=== PATIENT | female | born 1980 | race African-American/Black ===

== ENCOUNTER 2016-09-29 23:24 | Emergency (ER) | payer MEDICAID, OTHER ==
[~2016-09-29] VITALS: Ht 157.5 cm; Wt 99.8 kg
[2016-09-29] MEDS ORDERED: eye drops OU (23:37)
[2016-09-29] MEDS ORDERED: FLON1SPR (23:37)
[2016-09-29] MEDS ORDERED: ZYRT10TA2 PO (23:37)
[2016-09-29] MEDS ORDERED: BENA25CA4 PO (23:46)
[2016-09-30] MEDS ORDERED: methylPREDNISolone INJ 125 MG/2 ML VIAL (J2930) IV ONE
[2016-09-30 01:34] LABS: BASO % 0.4 % (0.0-1.0); EOS # 0.6 K/mm3 (0.0-0.50); EOS % 6.4 % (0.0-3.0); LARGE UNSTAINED CELL # 0.2 K/mm3 (0.0-0.4); LARGE UNSTAINED CELL % 2.3 % (0.0-4.0); LYMPH # 2.7 K/mm3 (1.5-4.5); LYMPH % 28.3 % (24.0-44.0); MEAN CORPUSCULAR HEMOGLOBIN 23.5 pg (27.0-33.0); MEAN CORPUSCULAR HGB CONC 31.7 g/dl (32.0-36.5); MEAN CORPUSCULAR VOLUME 74.2 fl (80.0-96.0); MONO # 0.4 K/mm3 (0.0-0.8); MONO % 4.9 % (0.0-5.0); NEUTROPHILS # 5.2 K/mm3 (1.8-7.7); NEUTROPHILS % 57.7 % (36.0-66.0); PLATELET COUNT, AUTOMATED 267 k/mm3 (150-450); RED CELL DISTRIBUTION WIDTH 17.7 % (11.5-14.5)
[2016-09-30 02:03] LABS: CONTROL LINE HCG INT CTR LINE PRESENT
[2016-09-30 02:08] LABS: ANION GAP 8 MEQ/L (8-16); BLOOD UREA NITROGEN 9 MG/DL (7-18); CALCIUM LEVEL 8.7 MG/DL (8.5-10.1); CARBON DIOXIDE LEVEL 25 MEQ/L (21-32); CHLORIDE LEVEL 107 MEQ/L (98-107); CREATININE FOR GFR 0.85 MG/DL (0.55-1.02); GLOMERULAR FILTRATION RATE > 60.0 (>60); GLUCOSE, FASTING 101 MG/DL (70-105); POTASSIUM SERUM 3.7 MEQ/L (3.5-5.1); SODIUM LEVEL 140 MEQ/L (136-145)
[2016-09-30] MEDS ORDERED: predniSONE 20 MG TAB PO ONE (02:30)
[2016-09-30 02:51] VITALS: BP 151/63
--- NOTE | 2016-09-30 14:48 | REP ---
CHEST, TWO VIEWS: COMPARISON: 03/02/2012. There is no evidence of acute infiltrate. No pleural effusion is seen. The heart is normal in size. The mediastinal silhouette is unremarkable. The visualized osseous structures are intact. IMPRESSION: No acute pulmonary disease. Signed by Aden Prajapati MD 09/30/2016 07:58 P
--- NOTE | 2016-10-01 20:49 | ECGEPIP ---
Stationary ECG Study [facility] - ED Test Date: 2016-09-30 Pat Name: TOSHIA FELDMAN Department: Room: - Gender: F [employer]: andre : 1980 Requested By: JESSICA Tucker Order Number: [id number] Reading MD: Lidia Al Measurements Intervals [place] Rate: 76 P: 43 OK: 192 QRS: -2 QRSD: 81 T: -18 QT: 373 QTc: 420 Interpretive Statements SINUS RHYTHM LOW QRS VOLTAGE IN PRECORDIAL LEADS NONSPECIFIC T-WAVE ABNORMALITY DELAYED R WAVE PROGRESSION NO OLD ECG FOR COMPARISON Electronically Signed On 10-01-2016 20:49:17 EDT by Lidia Al
== END 2016-09-30 02:57 | disposition home or self-care (01) ==
LOC: EDBD 23:24 → M ED 23:24 → EDBD 09-30 00:16 → M ED 09-30 02:57
DX: J00 Acute nasopharyngitis [common cold] (principal); J30.2 Other seasonal allergic rhinitis; R94.31 Abnormal electrocardiogram [ECG] [EKG]
CPT/HCPCS: 36415; 71020; 80048; 84703; 85025; 85379; 87486; 87581; 87633; 87798; 93005; 93041; 94760; 99284; J2930

== ENCOUNTER 2018-06-30 12:21 | Emergency (ER) | payer MEDICAID ==
[~2018-06-30] VITALS: Ht 154.9 cm; Wt 111.4 kg
[2018-06-30 12:21] VITALS: BP 135/66
[~2018-06-30 12:21] MED LIST: BENA25CA4 PO; FLON1SPR; ZYRT10CA5 PO; eye drops OU
== END 2018-06-30 13:45 | disposition left against medical advice (07) ==
LOC: M ED 12:21
DX: Z04.1 Encounter for examination and observation following transport accident (principal); Z53.21 Procedure and treatment not carried out due to patient leaving prior to being seen by health care provider